=== PATIENT | female | born 1950 | race Caucasian/White ===

== ENCOUNTER 2018-05-31 15:05 | Outpatient (CLI) | payer MEDICARE ==
--- NOTE | 2018-05-31 15:59 | RAD ---
NASAL BONES THREE VIEWS: 05/31/2018 HISTORY: Nasal trauma. FINDINGS: There is a vertically oriented lucency seen within the distal portion of the nasal bone, suggesting a nondisplaced nasal bone fracture. There is opacification of the left maxillary antrum, which could be related to fluid or mucosal thickening. The remainder of the visualized paranasal sinuses are leila ar. No other findings. IMPRESSION: 1. Subtle nondisplaced nasal bone fracture. 2. Complete opacification of the left maxillary antrum, which could be related to fluid or mucosal t hickening. POS: [facility]DA
== END 2018-05-31 15:06 | disposition home or self-care (01) ==
LOC: NAV RAD 15:05
PROVIDERS: ATTEND Internal Medicine
DX: S09.92XA Unspecified injury of nose, initial encounter (principal); S02.2XXA Fracture of nasal bones, initial encounter for closed fracture
CPT/HCPCS: 70160

== ENCOUNTER 2019-01-04 11:50 | Outpatient (CLI) | payer MEDICARE, OTHER ==
--- NOTE | 2019-01-04 12:08 | RAD ---
Left wrist 2 views HISTORY: Left wrist injury. FINDINGS: Scaphoid waist and styloid are intact. Minimal osteophytosis. No acute fracture, dislocatio n, or aggressive osseous erosions. IMPRESSION: No acute osseous abnormalities are demonstrated.
== END 2019-01-04 11:51 | disposition home or self-care (01) ==
LOC: NAV RAD 11:50
PROVIDERS: ATTEND Internal Medicine
DX: M25.532 Pain in left wrist (principal)